=== PATIENT | female | born 1980 | race Caucasian/White ===

== ENCOUNTER → 2017-03-05 | Outpatient (CLI) | payer OTHER ==
--- NOTE | 2017-03-05 15:58 | US ---
History: Palpable nodule right breast 10:00 DATE OF SERVICE: 03/05/2017 Services provided: Full field digital bilateral diagnostic mammography. CAD, the images were reviewed with R2 computer aided detection. Directed Limited right breast sonography. FINDINGS: Routine and true lateral views are obtained. This represents baseline study. No significant family history for breast malignancy. Patient indicates she has had a lump present in her right breast for several months and has some soreness in her right arm pit. Glandular tissue is near completely fatty involuted. Lobulated 5.3 cm mass is shown right breast 10:00 corresponding to the region of palpable change. No microcalcifications or distortion. Directed ultrasound exam confirms a group of simple cysts corresponding to the region of palpable change and mammographic nodule. IMPRESSION: Benign exam. Recommendation: Routine mammography according to the [employer] guidelines. Findings and recommendations were communicated to the patient. BIRAD CATEGORY: 2 BENIGN Electronically signed by: Mandie Jeronimo MD 03/05/2017 3:57 PM CDT Workstation: [id number]
== END ==
LOC: MAMMO 15:00
PROVIDERS: ATTEND Family Medicine
DX: N63 Unspecified lump in breast (principal)